=== PATIENT | female | born 1985 | race Caucasian/White ===

== ENCOUNTER → 2017-10-26 10:53 | Outpatient (CLI) | payer OTHER, SELFPAY ==
[2017-10-26 12:49] LABS: Urine N gonorrhoeae NOT DETECTED
[2017-10-26 13:03] LABS: Urine Chlamydia NOT DETECTED
[2017-10-26 16:19] LABS: Hepatitis B Surface Antigen NEGATIVE s/c (NEGATIVE)
[2017-10-26 16:36] LABS: HIV 1 and 2 Antibody NEGATIVE (NEGATIVE); Hep C Virus Ab w/Reflex Quant NEGATIVE s/c (NEGATIVE)
[2017-10-27 14:06] LABS: HSV 2 IGG AB < 0.90 index (< 0.90)
[2017-11-01 15:24] LABS: Rapid Plasma Reagin NON-REACTIVE
== END ==
PROVIDERS: Family Provider Obstetrics & Gynecology; PCP Obstetrics & Gynecology; Visit Provider Obstetrics & Gynecology
DX: Z20.2 Contact with and (suspected) exposure to infections with a predominantly sexual mode of transmission (principal)
CPT/HCPCS: 36415; 86592; 86695; 86696; 86703; 86803; 87340; 87491; 87591